=== PATIENT | male | born 1975 | race Native Hawaiian/Other Pacific Islander ===

== ENCOUNTER 2023-07-09 07:40 | Outpatient (CLI) | payer OTHER, SELFPAY ==
--- OUTSIDE RECORDS SUMMARY | 2023-07-09 07:44 | XMS_ITS | Clinical Summary ---
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 30 tablet 5 11/07/2014 Active atorvastatin (LIPITOR) 40 mg tabletIndications:Acu te chest pain Take 1 tablet by mouth at bedtime. 30 tablet 5 11/07/2014 Active Active Problems Problem Noted Date Diagnosed Date Chest pain 11/06/2014 Abnormal EKG 11/06/2014 Obesity 11/06/2014 Allergic rhinitis, cause unspecified 02/07/2009 Family History Medical History Relation Name Comments Other Other no hx of heart dz Relation Name Status Comments Other Social History Tobacco Use Types Packs/Day Years Used Date Smoking Tobacco: Never Tobacco Cessation:Counseling Given: No Alcohol Use Standard Drinks/Week Comments No 0 (1 standard drink = 0.6 oz pur e alcohol) Sex and Gender Information Value Date Recorded Sex Assigned at Not on file Gender Identity Not on file Sexual Orientation Not on file Obstetrics History Last Filed Vital Signs Vital Sign Reading Time Taken Comments Blood Pressure 111/67 11/07/2014 7:45 AM CDT Pulse 55 11/07/2014 7:45 AM CDT Temperature 36.6 ??C (97.9 ??F) 11/07/2014 7:45 AM CD T Respiratory Rate 16 11/07/2014 7:45 AM CDT Oxygen Saturation 97% 11/07/2014 7:45 AM CDT Inhaled Oxygen Concentration - - Weight 123.1 kg (271 lb 6.2 oz) 11/07/2014 5:00 AM CDT Height 172.7 cm (5' 8) 11/06/2014 2:15 PM CDT Body Mass Index 41.26 11/06/2014 2:15 PM CDT Plan of Treatment Health Maintenance Due Date Last Done Comments COVID-19 vaccine series (#1) 03/25/1975 Tdap 1985 Depression screening for age 12+ 1986 HIV for age 15-65 1989 BMI (ht and wt on same day) for age 18+ 1992 Hepatitis C screening for ag e 18-79 1992 Tetanus booster 1994 Colonoscopy through age 75 09/24/2019 Influenza for age 9-49 01/28/2023 Lipids for age 45-75 11/11/2025 11/11/2020, 05/19/2015, 11/07/2014 Pneumococcal series for age 6-64 Aged Out No longer eligible b ased on patient's age to complete this topic Advance Directives Latest Code Status on File Code Status Date Activated Date Inactivated Comments Full Code 11/06/2014 4:54 PM 11/07/2014 4:37 PM Care Teams Hand Frame Surgical Elastic Knitter Relationship Specialty Start Date End Date [facility] [address] [place] [address] PCP - General 02/07/09
[2023-07-09 08:04] LABS: Appearance Urine Clear (Clear); Bilirubin Urine Negative (Negative); Blood Urine Negative (Negative); Color Urine Yellow (Yellow); Glucose Urine Negative (Negative); Ketones Urine Negative (Negative); Leukocyte Esterase Urine Negative (Negative); Nitrite Urine Negative (Negative); Protein Urine Negative (Negative); Specific Gravity Urine 1.015 (1.000-1.030); pH Urine 5.5 (5.0-8.5)
[2023-07-09 08:06] LABS: Basophils Absolute Auto 0.06 K/uL (0.00-0.30); Basophils Percent Auto 0.6 % (0.0-3.0); Eosinophils Percent Auto 0.9 % (0.0-7.0); Hematocrit 46.2 % (37.0-53.0); Hemoglobin* 15.2 gm/dL (13.5-17.5); Immature Granulocytes Abs Auto 0.11 K/uL (0.00-0.30); Lymphocytes Absolute Auto 3.13 K/uL (0.90-2.90); Lymphocytes Percent Auto 29.4 % (20-44); Mean Corpuscular HGB Conc 33 gm/dL (32-36); Mean Corpuscular Hemoglobin 30 pg (26-34); Mean Corpuscular Volume 91 fL (80-100); Monocytes Percent Auto 7.1 % (0.0-11.0); Neutrophils Absolute Auto 6.48 K/uL (1.7-7.0); Platelet Count* 420 K/uL (140-440); RDW Coefficient of Variation % 13.8 % (11.5-15.5); Red Blood Count 5.06 m/uL (4.30-5.90); White Blood Count* 10.63 K/uL (4.50-11.00)
[2023-07-09 08:13] LABS: Slide Review Reflex No
[2023-07-09 08:14] LABS: Albumin* 4.6 g/dL (3.3-5.0)
[2023-07-09 08:15] LABS: Chloride* 102 mmol/L (96-114); Sodium* 138 mmol/L (135-149)
[2023-07-09 08:17] LABS: Anion Gap 8 mEq/L (7-15); Aspartate Amino Transferase* 18 U/L (12-35); Bilirubin Total* 0.8 mg/dL (0.1-1.5); Carbon Dioxide* 28 mmol/L (20-32); Cholesterol* 194 mg/dL (90-199); Creatinine* 0.8 mg/dL (0.5-1.5); Estimated Glomerular Filt Rate 109 ml/min; Total Protein* 8.2 g/dL (6.0-8.3)
[2023-07-09 08:18] LABS: Alanine Aminotransferase* 20 U/L (4-50); Alkaline Phosphatase* 76 U/L (40-150); Blood Urea Nitrogen* 18 mg/dL (5-24); Calcium* 9.3 mg/dL (8.4-10.6); Glucose* 124 mg/dL (60-115); HDL Cholesterol* 56 mg/dL (>=40); LDL Cholesterol Calculated 111 mg/dL (<100); Triglycerides* 133 mg/dL (40-149)
[2023-07-09 08:51] LABS: Creatinine Urine 110.5 mg/dL
[2023-07-09 08:58] LABS: Microalbumin Creatinine Ratio 0 mg/g (0-30); Microalbumin Urine 1 mg/dL
[2023-07-09 09:15] LABS: Hemoglobin A1C* 8.9 % (0-5.6)
== END 2023-07-09 07:41 | disposition home or self-care (01) ==
LOC: LAB 07:42
PROVIDERS: PCP Internal Medicine; Visit Provider Family Medicine
DX: E11.65 Type 2 diabetes mellitus with hyperglycemia (principal)
CPT/HCPCS: 36415; 80053; 80061; 81003; 82043; 82570; 83036; 85025